=== PATIENT | female | born 2005 | race Caucasian/White ===

== ENCOUNTER 2024-04-05 00:21 | Emergency (ER) | payer OTHER ==
[2024-04-05] MEDS ORDERED: Bacitracin 1 PK ONE (00:53)
== END 2024-04-05 01:20 | disposition home or self-care (01) ==
LOC: CSHERS 00:21
DX: S01.112A Laceration without foreign body of left eyelid and periocular area, initial encounter (principal); W19.XXXA Unspecified fall, initial encounter
CPT/HCPCS: 12011; 99282